=== PATIENT | female | born 1955 | race Caucasian/White ===

== ENCOUNTER 2017-10-16 23:44 | Emergency (ER) | payer OTHER ==
[~2017-10-16] VITALS: Ht 165.1 cm; Wt 113.4 kg
[2017-10-16] MEDS ORDERED: [UNRECOGNIZED DRUG - OTHER] (23:57)
[2017-10-16] MEDS ORDERED: PRED10 PO (23:57)
[2017-10-16] MEDS ORDERED: METCAR500 PO (23:57)
[2017-10-16] MEDS ORDERED: DULERA 100 MCG/13 GM INH (23:58)
[2017-10-16] MEDS ORDERED: TIOT18 INH (23:58)
[2017-10-16] MEDS ORDERED: ALBU90OI INH (23:58)
== END 2017-10-17 04:54 | disposition home or self-care (01) ==
LOC: ER 23:44
DX: S39.012A Strain of muscle, fascia and tendon of lower back, initial encounter (principal); V57.5XXA Driver of pick-up truck or van injured in collision with fixed or stationary object in traffic accident, initial encounter
CPT/HCPCS: 72100; 96372; 99284; J1885